=== PATIENT | female | born 1965 | race African-American/Black ===

== ENCOUNTER → 2017-11-12 | Outpatient (CLI) | payer OTHER ==
[~2017-11-12] MED LIST: ABX; ALDACTONE50 MG PO; AMOXICILLIN500 M1 PO; ASPIRIN EC81 M1 PO; BACTRIM DS TAB1 EACH PO; CEFTIN 250 MG250 MG PO; CHANTIX1 MG PO; CLONAZEPAM 0.50.5 M1 PO; COZAAR 50 MG TA50 M2 PO; HYDROCODON-ACE1 EAC7 PO; HYDROXYCHLOROQ200 M1 PO; IMURAN 50MG TAB50 M1 PO; LASIX 40 MG TAB40 M2 PO; MICARDIS 20MG T20 M1 PO; NORVASC 2.5 MG2.5 M1 PO; OMEPRAZOLE20 M2 PO; PHENERGAN 25 MG25 M1 PO; PRAVASTATIN SOD10 MG PO; PREDNISONE 20 M20 M1 PO; PREDNISONE 20 M20 MG PO; PROVENTIL HFA6.7 G1 INH; SYMBICORT160 MCG/4. INH; SYMBICORT80 MCG/4.1 INH; TOBREX5 ML OPHTHALMIC; TOPAMAX100 MG PO; VALACYCLOVIR1000 MG PO; VITAMIN D 5050000 I1; ZOFRAN ODT4 MG PO
== END ==
LOC: ULTRA 08:50
DX: S82.492A Other fracture of shaft of left fibula, initial encounter for closed fracture (principal); I10 Essential (primary) hypertension; X58.XXXA Exposure to other specified factors, initial encounter; Y93.89 Activity, other specified; Y92.89 Other specified places as the place of occurrence of the external cause; Y99.8 Other external cause status

== ENCOUNTER 2018-05-20 06:05 | Emergency (ER) | payer OTHER ==
[~2018-05-20] VITALS: Ht 157.5 cm; Wt 81.2 kg
[~2018-05-20 06:05] MED LIST changes: -ALDACTONE50 MG PO; -COZAAR 50 MG TA50 M2 PO; -LASIX 40 MG TAB40 M2 PO; -VALACYCLOVIR1000 MG PO
[2018-05-20] MEDS ORDERED: LASIX 40 MG TAB40 M2 PO (06:18)
[2018-05-20] MEDS ORDERED: ALDACTONE50 MG PO (06:18)
[2018-05-20] MEDS ORDERED: COZAAR 50 MG TA50 M2 PO (06:18)
[2018-05-20] MEDS ORDERED: VALACYCLOVIR1000 MG PO (06:20)
[2018-05-20 06:28] VITALS: BP 154/95
== END 2018-05-20 06:29 | disposition home or self-care (01) ==
LOC: ER 06:05
DX: B02.9 Zoster without complications (principal); M32.9 Systemic lupus erythematosus, unspecified; Z88.8 Allergy status to other drugs, medicaments and biological substances; Z88.1 Allergy status to other antibiotic agents; I10 Essential (primary) hypertension; G93.2 Benign intracranial hypertension; Z90.710 Acquired absence of both cervix and uterus

== ENCOUNTER 2018-09-14 07:56 | Emergency (ER) | payer OTHER ==
[~2018-09-14] VITALS: Ht 157.5 cm; Wt 83.9 kg
[~2018-09-14 07:56] MED LIST changes: +ALDACTONE50 MG PO; +COZAAR 50 MG TA50 M2 PO; +LASIX 40 MG TAB40 M2 PO; +VALACYCLOVIR1000 MG PO
[2018-09-14] MEDS ORDERED: NORCO 5-325 TA1 EACH PO (09:14)
[2018-09-14] MEDS ORDERED: IBUPROFEN 600600 M1 PO (09:14)
[2018-09-14] MEDS ORDERED: SENNA-DOCUSATE1 EAC1 PO (09:14)
[2018-09-14 09:36] VITALS: BP 148/51
== END 2018-09-14 10:01 | disposition home or self-care (01) ==
LOC: ER 07:56
DX: M84.47 Pathological fracture, ankle, foot and toes (principal); I10 Essential (primary) hypertension; M32.9 Systemic lupus erythematosus, unspecified; Z90.710 Acquired absence of both cervix and uterus; Z88.1 Allergy status to other antibiotic agents; Z88.8 Allergy status to other drugs, medicaments and biological substances

== ENCOUNTER 2019-02-02 11:23 | Emergency (ER) | payer OTHER ==
[~2019-02-02] VITALS: Ht 157.5 cm; Wt 86.2 kg
[~2019-02-02 11:23] MED LIST changes: +IBUPROFEN 600600 M1 PO; +NORCO 5-325 TA1 EACH PO; +SENNA-DOCUSATE1 EAC1 PO
[2019-02-02] MEDS ORDERED: MOBIC7.5 MG PO (13:16)
[2019-02-02 13:17] VITALS: BP 212/82
== END 2019-02-02 17:38 | disposition home or self-care (01) ==
LOC: ER 11:23
DX: M77.9 Enthesopathy, unspecified (principal); I10 Essential (primary) hypertension; M32.9 Systemic lupus erythematosus, unspecified; Z88.1 Allergy status to other antibiotic agents; Z88.8 Allergy status to other drugs, medicaments and biological substances; Z90.710 Acquired absence of both cervix and uterus

== ENCOUNTER → 2019-05-05 | Outpatient (CLI) | payer OTHER ==
[~2019-05-05] MED LIST changes: +MOBIC7.5 MG PO
== END ==
LOC: CAT 07:39
DX: M25.522 Pain in left elbow (principal)